=== PATIENT | male | born 1965 | race Caucasian/White ===

== ENCOUNTER 2017-11-09 08:08 | Outpatient (CLI) | payer OTHER | END 2017-11-09 08:09 | disposition critical access hospital (66) | LOC: EMS 08:08 | PROVIDERS: ATTEND Surgery | DX: M54.9 Dorsalgia, unspecified (principal); V09.20XA Pedestrian injured in traffic accident involving unspecified motor vehicles, initial encounter; Y93.01 Activity, walking, marching and hiking; Y92.414 Local residential or business street as the place of occurrence of the external cause | CPT/HCPCS: A0425; A0429 ==

== ENCOUNTER 2017-11-09 08:16 | Emergency (ER) | payer OTHER ==
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
[2017-11-09 10:20] VITALS: BP 143/82
== END 2017-11-09 10:19 | disposition home or self-care (01) ==
LOC: ED 08:16
DX: S20.212A Contusion of left front wall of thorax, initial encounter (principal); V03.10XA Pedestrian on foot injured in collision with car, pick-up truck or van in traffic accident, initial encounter; Y92.410 Unspecified street and highway as the place of occurrence of the external cause
CPT/HCPCS: 99283

== ENCOUNTER 2022-10-25 08:10 | Outpatient (CLI) | payer OTHER ==
--- NOTE | 2022-10-25 09:51 | XRAY Report ---
PROCEDURE: Chest 2 View X-Ray INDICATIONS: COUGH TECHNIQUE: 2 views of the chest were acquired. COMPARISON: None. FINDINGS: Surgical changes and devices: None. Lungs and pleura: Moderate right pleural effusion. Right basilar atelectasis versus consolidation. Mediastinum: Mediastinal contours are normal. Heart size is normal. Bones and chest wall: No suspicious bony abnormalities. Soft tissues appear unremarkable. IMPRESSION: Moderate right pleural effusion with right basilar atelectasis versus consolidation. If no fever or l eukocytosis, CT would be warranted. If fever and/or leukocytosis, consider repeat imaging 1 month fol lowing treatment. Reviewed by: Lupillo Franco on 10/25/2022 9:49 AM [facility] Approved by: Lupillo Franco on 10/25/2022 9:49 AM [facility] Station ID: [id number]
== END 2022-10-25 08:11 | disposition home or self-care (01) ==
LOC: DI 08:10
PROVIDERS: ATTEND Physician Assistant
DX: J90 Pleural effusion, not elsewhere classified (principal); R91.8 Other nonspecific abnormal finding of lung field

== ENCOUNTER 2022-10-25 12:15 | Emergency (ER) | payer OTHER ==
[2022-10-25 13:32] LABS: BASOPHILS # (AUTO) 0.1 10^3/uL (0.0-0.1); BASOPHILS % (AUTO) 0.3 %; EOSINOPHILS % (AUTO) 0.2 %; HCT - HEMATOCRIT 40.4 % (42.0-52.0); HGB - HEMOGLOBIN 13.4 g/dL (14.0-18.0); LYMPHOCYTES # (AUTO) 1.2 10^3/uL (1.5-3.5); LYMPHOCYTES % (AUTO) 6.3 %; MEAN CORPUSCULAR HEMOGLOBIN 27.7 pg (27.0-31.0); MEAN CORPUSCULAR HGB CONC 33.2 g/dL (32.0-36.0); MEAN CORPUSCULAR VOLUME 83.5 fL (80.0-94.0); MEAN PLATELET VOLUME 8.8 fL (7.4-11.4); MONOCYTES # (AUTO) 1.1 10^3/uL (0.0-1.0); MONOCYTES % (AUTO) 5.7 %; NEUTROPHILS # (AUTO) 16.3 10^3/uL (1.5-6.6); NEUTROPHILS % (AUTO) 87.1 %; PLT - PLATELET COUNT 630 10^3/uL (130-450); RED BLOOD COUNT 4.84 10^6/uL (4.70-6.10); RED CELL DISTRIBUTION WIDTH 12.6 % (12.0-15.0); WHITE BLOOD COUNT 18.7 x10^3/uL (4.8-10.8)
[2022-10-25] MEDS ORDERED: iohexoL-300 100 ML VIAL ONE (13:39)
[2022-10-25 13:45] LABS: ALBUMIN 2.2 g/dL (3.2-5.5); ALBUMIN/GLOBULIN RATIO 0.4 (1.0-2.2); BILIRUBIN,TOTAL 0.7 mg/dL (0.2-1.0); CALCIUM 8.3 mg/dL (8.5-10.3); CREATININE 0.6 mg/dL (0.6-1.2); POTASSIUM 4.2 mmol/L (3.5-5.0); TOTAL PROTEIN 7.6 g/dL (6.7-8.2)
[2022-10-25] MEDS ORDERED: metroNIDAZOLE 500 MG/100 ML 500 MG/100 ML BAG IV ONE (14:35)
[2022-10-25] MEDS ORDERED: cefTRIAXone 2 GM in SODIUM CHLORIDE 0.9% MINIBAG 100 ML IV STA (14:35)
--- NOTE | 2022-10-25 14:37 | ED Physician Documentation ---
History of Present Illness - Stated complaint Stated Complaint: SOA - Chief complaint Chief Complaint: Resp - History obtained from History obtained from: Patient - Additonal information Additional information: 57-year-old gentleman with history of diabetes, lost to follow-up without PCP. He started to get sick about a week and a half into August with productive cough. A couple of weeks later went to urgent care and got what sounds like steroids and felt much better. Then relapsed maybe 2 weeks ago with increased productive cough, shortness of breath and fatigue. Went back to urgent care to day and sent for an outpatient x-ray showing a large right pleural effusion and transferred to the ED was recommended. PD PAST MEDICAL HISTORY - Past Surgical History Past Surgical History: No - Present Medications Home Medications: Ambulatory Orders Medication Instructions Recorded Confirmed Brimonidine 0.2% Ophth Drops 1 drops OPTH BID 10/25/22 10/25/22 [Alphagan P 0.2% Ophth Drops] Latanoprost/Pf [Latanoprost 0.005% 1 drops OP HS 10/25/22 10/25/22 Eye Drop] Timolol 0.5% Ophth Drops [Timoptic 1 drops OPTH BID 10/25/22 10/25/22 0.5% Ophth Drops] - Allergies Allergies/Adverse Reactions: Allergies Allergy/AdvReac Type Severity Reaction Status Date / Time No Known Drug Allergies Allergy Verified 10/25/22 13:01 - Social History Does the pt smoke?: No Smoking Status: Never smoker PD ED PE NORMAL - Vitals Vital signs reviewed: Yes - General General: Alert and oriented X 3, Other (Mildly labored breathing with tachypnea but speaking in full sentences albeit barely. Appears pale.) - HEENT HEENT: PERRL, EOMI - Neck Neck: Supple, no meningeal sign, No bony TTP - Cardiac Cardiac: RRR, No murmur - Respiratory Respiratory: Other (Diminished to absent at the right base) - Abdomen Abdomen: Non tender - Back Back: No CVA TTP, No spinal TTP - Derm Derm: Normal color, Warm and dry, No rash - Extremities Extremities: No edema, No calf tenderness / cord - Neuro Neuro: Alert and oriented X 3, Normal speech Results - Vitals Vitals: Vital Signs - 24 hr 10/25/22 10/25/22 10/25/22 12:56 14:31 15:02 Temperature 37.1 C Heart Rate 99 112 H 107 H Respiratory 24 25 H 26 H Rate Blood Pressure 128/65 135/78 H 119/80 O2 Saturation 92 94 92 If not protocol : Oxygen Flow, liters/minute 10/25/22 10/25/22 10/25/22 16:03 17:36 17:53 Temperature Heart Rate 104 H 99 Respiratory 29 H 30 H Rate Blood Pressure 132/74 H 118/71 O2 Saturation 93 90 L 91 L If not protocol 1 : Oxygen Flow, liters/minute 10/25/22 10/25/22 10/25/22 18:30 20:00 20:30 Temperature Heart Rate 97 97 94 Respiratory 26 H 26 H 26 H Rate Blood Pressure 117/64 113/62 110/63 O2 Saturation 93 94 94 If not protocol 1 1 1 : Oxygen Flow, liters/minute 10/25/22 10/25/22 21:00 21:30 Temperature Heart Rate 98 96 Respiratory 26 H 25 H Rate Blood Pressure 126/79 126/72 O2 Saturation 94 95 If not protocol 1 1 : Oxygen Flow, liters/minute Oxygen O2 Source Nasal cannula Oxygen Flow Rate 1 - Labs Labs: Laboratory Tests 10/25/22 10/25/22 10/25/22 13:20 13:20 13:20 WBC 18.7 H RBC 4.84 Hgb 13.4 L Hct 40.4 L MCV 83.5 MCH 27.7 MCHC 33.2 RDW 12.6 Plt Count 630 H MPV 8.8 Neut # (Auto) 16.3 H Lymph # (Auto) 1.2 L [place] # (Auto) 1.1 H Eos # (Auto) 0.0 Baso # (Auto) 0.1 Absolute Nucleated RBC 0.00 Nucleated RBC % 0.0 Sodium 129 L Potassium 4.2 Chloride 93 L Carbon Dioxide 24 Anion Gap 12.0 BUN 14 Creatinine 0.6 Estimated GFR (MDRD) 139 Glucose 421 H POC Whole Bld Glucose Lactic Acid 1.7 Calcium 8.3 L Total Bilirubin 0.7 AST 16 ALT 13 Alkaline Phosphatase 98 Total Protein 7.6 Albumin 2.2 L Globulin 5.4 H Albumin/Globulin Ratio 0.4 L Nasal Adenovirus (PCR) Nasal B. parapertussis DNA (PCR) Nasal Coronavir 229E PCR Nasal Coronavir HKU1 PCR Nasal Coronavir NL63 PCR Nasal Coronavir OC43 PCR Nasal Enterovir/Rhinovir PCR Nasal Influenza B PCR Nasal Influenza A PCR Nasal Parainfluen 1 PCR Nasal Parainfluen 2 PCR Nasal Parainfluen 3 PCR Nasal Parainfluen 4 PCR Nasal RSV (PCR) Nasal B.pertussis DNA PCR Nasal C.pneumoniae (PCR) Ramiro Human Metapneumo PCR Nasal M.pneumoniae (PCR) Nasal SARS-CoV-2 (PCR) 10/25/22 10/25/22 15:45 21:26 WBC RBC Hgb Hct MCV MCH MCHC RDW Plt Count MPV Neut # (Auto) Lymph # (Auto) [place] # (Auto) Eos # (Auto) Baso # (Auto) Absolute Nucleated RBC Nucleated RBC % Sodium Potassium Chloride Carbon Dioxide Anion Gap BUN Creatinine Estimated GFR (MDRD) Glucose POC Whole Bld Glucose 297 H Lactic Acid Calcium Total Bilirubin AST ALT Alkaline Phosphatase Total Protein Albumin Globulin Albumin/Globulin Ratio Nasal Adenovirus (PCR) NOT DETECTED Nasal B. parapertussis DNA (PCR) NOT DETECTED Nasal Coronavir 229E PCR NOT DETECTED Nasal Coronavir HKU1 PCR NOT DETECTED Nasal Coronavir NL63 PCR NOT DETECTED Nasal Coronavir OC43 PCR NOT DETECTED Nasal Enterovir/Rhinovir PCR NOT DETECTED Nasal Influenza B PCR NOT DETECTED Nasal Influenza A PCR NOT DETECTED Nasal Parainfluen 1 PCR NOT DETECTED Nasal Parainfluen 2 PCR NOT DETECTED Nasal Parainfluen 3 PCR NOT DETECTED Nasal Parainfluen 4 PCR NOT DETECTED Nasal RSV (PCR) NOT DETECTED Nasal B.pertussis DNA PCR NOT DETECTED Nasal C.pneumoniae (PCR) NOT DETECTED Ramiro Human Metapneumo PCR NOT DETECTED Nasal M.pneumoniae (PCR) NOT DETECTED Nasal SARS-CoV-2 (PCR) DETECTED A - Rads (name of study) CT of the chest with IV contrast demonstrates a loculated pleural effusion on the right with patchy airspace opacities and mediastinal/hilar lymphade Radiology: Final report received, EMP read indepedently PD Medical Decision Making - ED course ED course: 57-year-old gentleman has been sick for the better part of a month with waxing and waning respiratory illness now here with tachypnea and tachycardia as well as borderline pulse oximetry and no breath sounds on the right. Work-up demonstrates likely multilobar pneumonia with a right-sided empyema. I did discuss with our surgeon here, Dr. Palacios who does not do chest cases and we will need to transfer him to a facility capable of cardiothoracic surgery consultation and this process is started at 3:22 PM. Multiple facilities with cardiothoracic surgery were called and he is boarding pending placement given that they are all currently full and wait listing him. Care to the overnight ED physician at shift change. In the interim I have written for scheduled Rocephin and Flagyl and repeat labs in the morning. CBC reviewed with significant leukocytosis at 18,000. CMP reviewed showing most notably elevated glucose of 421 for which he was administered some IV insulin and scheduled Lantus was started. Departure - Departure Disposition: 02 Transfer Acute Care Hosp Clinical Impression: Empyema Condition: Serious
[2022-10-25] MEDS ORDERED: INSULIN REGULAR HUMAN 100 UNIT/1 ML 10 ML MDV IVP STA (14:38)
[2022-10-25] MEDS ORDERED: SODIUM CHLORIDE 0.9% 1,000 ML IV STA (14:38)
--- NOTE | 2022-10-25 15:04 | CT Report ---
PROCEDURE: CHEST W INDICATIONS: dyspnea, abn xr CONTRAST:100ml Omnipaque 300 TECHNIQUE: After the administration of intravenous contrast, 1 mm axial images were acquired from the pulmonary apices through the posterior costophrenic angles. Axial 5 mm soft tissue kernel reconstructions were performed as well as 8 mm axial MIP and coronal and sagittal 5 mm reformations. For radiation dose reduction, the following was used: automated exposure control, adjustment of mA and/or kV according to patient size. COMPARISON: Chest radiograph dated 10/25/2022 and rib series dated 11/09/2017. FINDINGS: Image quality: Excellent. Lungs and pleura: Moderate to large sized partially loculated right pleural effusion is seen with flu id extending to major and minor fissure. There is near completely atelectasis of right middle and low er lobes and segmental atelectasis in posterior aspect of right upper lobe. Small left pleural effusi on is also noted with mild adjacent compressive atelectasis in posterior aspect of left lower lobe. I ll-defined subtle patchy airspace opacities are seen scattered in bilateral aerated lung arvizu cassidy rning for scattered small patchy infiltrates. No pneumothorax. Central and peripheral airways are pat ent and normal in caliber. Mediastinum: Heart size is mildly enlarged. No pericardial effusion. Moderate atherosclerotic calc ifications are seen in coronary vessels. Mildly enlarged mediastinal and hilar lymph nodes are seen m easures up to 1.1 cm in subcarinal space series 3 image 27. Thoracic aorta and central pulmonary regino mya are normal in size. Esophagus is normal in caliber. No hiatal hernia. Bones and chest wall: No suspicious bony lesions. No vertebral body compression fractures. No axil sherry or supraclavicular adenopathy by size criteria. The thyroid is normal in size and there are no incidental findings.. Abdomen: Visualized upper abdominal solid organs appear normal. Upper abdominal bowel loops are nor mal in caliber. IMPRESSION: 1. Moderate to large sized partially loculated right pleural effusion with near complete atelectasis of right middle and lower lobes and the segmental atelectasis in posterior aspect of right upper lobe . Small left pleural effusion with mild adjacent compressive atelectasis in posterior aspect of left lower lobe. No pneumothorax. 2. Ill-defined a subtle patchy airspace opacities scattered in bilateral aerated lung arvizu concerni ng for small bilateral scattered pulmonary infiltrates versus atelectasis. 3. Mildly enlarged mediastinal and right hilar lymph nodes suggestive of reactive inflammatory lymph nodes. 4. Mild cardiomegaly, no pericardial effusion. CLINICAL RECOMMENDATION STATEMENTS: In patients <35 years with an ITN detected on CT, MRI, or extrathyroidal ultrasound, the Committee re commends further evaluation with dedicated thyroid ultrasound if the nodule is "e1 cm and has no susp icious imaging features, and if the patient has normal life expectancy. In patients "e35 years with an ITN detected on CT, MRI, or extrathyroidal ultrasound, the Committee r ecommends further evaluation with dedicated thyroid ultrasound if the nodule is "e1.5 cm and has no s uspicious imaging features, and if the patient has normal life expectancy. (ACR, 2014) Reviewed by: Reggie Martines MD on 10/25/2022 3:03 PM PST Approved by: Reggie Martines MD on 10/25/2022 3:03 PM PST Station ID: [id number]
[2022-10-25] MEDS ORDERED: ONDANSETRON 4 MG/2 ML VIAL IVP PRN (15:32)
[2022-10-25] MEDS ORDERED: ACETAMINOPHEN 500 MG TABLET PO PRN (15:32)
[2022-10-25] MEDS ORDERED: iohexoL-300 100 ML VIAL IVP ONE (15:46)
[2022-10-25 16:58] LABS: B. PARAPERTUSSIS- RESP PCR PAN NOT DETECTED; B. PERTUSSIS- RESP PCR PANEL NOT DETECTED; C. PNEUMONIAE- RESP PCR PANEL NOT DETECTED; CORONAVIRUS 229E-RESP PCR NOT DETECTED; CORONAVIRUS HKU1-RESP PCR NOT DETECTED; CORONAVIRUS NL63-RESP PCR NOT DETECTED; CORONAVIRUS OC43-RESP PCR NOT DETECTED; HUMAN METAPNEUMOVIRUS NOT DETECTED; INFLUENZA A- RESP PCR PANEL NOT DETECTED; INFLUENZA B - RESP PCR PANEL NOT DETECTED; M. PNEUMONIAE- RESP PCR PANEL NOT DETECTED; PARAINFLUENZA VIRUS 1 NOT DETECTED; PARAINFLUENZA VIRUS 2 NOT DETECTED; PARAINFLUENZA VIRUS 3 NOT DETECTED; PARAINFLUENZA VIRUS 4 NOT DETECTED; RHINOVIRUS/ENTEROVIRUS NOT DETECTED; RSV- RESP PCR PANEL NOT DETECTED; SARS-CoV-2 -RESP PCR PANEL DETECTED
[2022-10-25] MEDS ORDERED: INSULIN GLARGINE-YFGN 300 UNIT/3 ML PEN SUBQ SCH (21:00)
[2022-10-25] MEDS: metroNIDAZOLE 500 MG/100 ML 500 MG/100 ML BAG IV SCH (21:24)
--- NOTE | 2022-10-26 00:02 | ED Physician Documentation ---
ED Addendum - Addendum Addendum: 10/26/22 00:00 d/w Sanjay at transfer center - patient currently 95% on 1L o2, tachypneic 25, HR 96. is declining transfer for now, stating patient is stable and they do not have bed capacity. They request re-consulting in morning if we are unable to place the patient. Our [facility] tonya has placed the patient on 5 waitlists and [facility] has been notified. Plan to endorse to daytime ED MD at 7am shift change. 10/26/22 00:02
[2022-10-26 00:05] LABS: BILIRUBIN,URINE NEGATIVE (NEGATIVE); CLARITY,URINE CLEAR (CLEAR); GLUCOSE, URINE (UA) 500 mg/dL (NEGATIVE); KETONES,URINE (UA) 40 mg/dL (NEGATIVE); LEUKOCYTE ESTERASE, URINE NEGATIVE (NEGATIVE); NITRITE,URINE NEGATIVE (NEGATIVE); OCCULT BLOOD,URINE TRACE-INTA (NEGATIVE); PROTEIN,URINE TRACE mg/dL (NEGATIVE); UROBILINOGEN,URINE 1 (NORMAL) E.U./dL (NORMAL)
[2022-10-26 00:13] LABS: BACTERIA,URINE Rare /HPF (None Seen); RBC,URINE 0-5 /HPF (0-5); SQUAMOUS EPITHELIAL CELL,UR RARE Squamous (<= Few); WBC,URINE 0-3 /HPF (0-3)
[2022-10-26] MEDS: metroNIDAZOLE 500 MG/100 ML 500 MG/100 ML BAG IV SCH (05:40)
[2022-10-26 06:00] LABS: BASOPHILS # (AUTO) 0.1 10^3/uL (0.0-0.1); BASOPHILS % (AUTO) 0.3 %; EOSINOPHILS % (AUTO) 0.2 %; HCT - HEMATOCRIT 36.7 % (42.0-52.0); HGB - HEMOGLOBIN 12.2 g/dL (14.0-18.0); LYMPHOCYTES # (AUTO) 1.3 10^3/uL (1.5-3.5); LYMPHOCYTES % (AUTO) 8.3 %; MEAN CORPUSCULAR HEMOGLOBIN 27.7 pg (27.0-31.0); MEAN CORPUSCULAR HGB CONC 33.2 g/dL (32.0-36.0); MEAN CORPUSCULAR VOLUME 83.4 fL (80.0-94.0); MEAN PLATELET VOLUME 8.6 fL (7.4-11.4); MONOCYTES # (AUTO) 1.2 10^3/uL (0.0-1.0); MONOCYTES % (AUTO) 7.9 %; NEUTROPHILS % (AUTO) 82.8 %; PLT - PLATELET COUNT 531 10^3/uL (130-450); RED CELL DISTRIBUTION WIDTH 12.5 % (12.0-15.0); WHITE BLOOD COUNT 15.7 x10^3/uL (4.8-10.8)
[2022-10-26 06:16] LABS: CREATININE 0.5 mg/dL (0.6-1.2); POTASSIUM 3.7 mmol/L (3.5-5.0)
[2022-10-26] MEDS ORDERED: PANTOPRAZOLE 40 MG TABLET PO SCH (07:00)
[2022-10-26] MEDS ORDERED: FAMOTIDINE 20 MG TABLET PO STA (08:31)
[2022-10-26] MEDS ORDERED: MAG HYDROX/AL HYDROX/SIMETH 30 ML UDC PO STA (08:31)
[2022-10-26] MEDS ORDERED: cefTRIAXone 1 GM in SODIUM CHLORIDE 0.9% MINIBAG 100 ML IV SCH (09:00)
[2022-10-26] MEDS ORDERED: ELECTROLYTE-A SOLUTION 1,000 ML IV SCH (09:00)
[2022-10-26] MEDS ORDERED: SUCRALFATE 1 GM/10 ML UDC PO STA (11:59)
--- NOTE | 2022-10-26 12:54 | ED Physician Documentation ---
ED Addendum - Addendum Addendum: 10/26/22 12:51 The patient has been doing well this morning with oxygenation at 94% on 2 L nasal cannula. He has unlabored breathing. He does have a history of some mild reactive airways and uses albuterol inhaler as needed. We can give an albuterol nebulizer here to help with aeration. He did complain of some heartburn type symptoms and he has had a history of reflux in the past. He uses Tums a lot. We can give some H2 iam and antacid. We did get a call from [facility] and I talked online on the phone with both the hospitalist and pulmonary medicine physician. They agree the patient should be transferred for more interventional treatment including drainage of the empyema and further medication. They were excepting the patient in transfer and would notify us when a bed is available. They asked if there had been any diagnostic drainage of the empyema at as yet and I said we had not. I reviewed the vital signs and patient condition as well as the labs and imaging finding with both specialists. No further treatment was suggested at this point. [facility] did subsequently call back and have beds of now available and the patient will be transferred via ground EMS for further care. Disposition: The patient is transferred to acute care facility in stable condition. Diagnoses: 1. Dyspnea 2. Acute pneumonia 3. Empyema
[2022-10-26 13:23] VITALS: BP 130/82
== END 2022-10-26 14:50 | disposition short-term general hospital (02) ==
LOC: ED 12:15
DX: J90 Pleural effusion, not elsewhere classified (principal); U07.1 COVID-19; Z75.1 Person awaiting admission to adequate facility elsewhere; J86.9 Pyothorax without fistula; J18.9 Pneumonia, unspecified organism; E11.65 Type 2 diabetes mellitus with hyperglycemia; R91.8 Other nonspecific abnormal finding of lung field
CPT/HCPCS: 36415; 71046; 71260; 80048; 80053; 81001; 83605; 85025; 87040; 87633; 96365; 96366; 96367; 96368; 99285; A9270; J1815; Q9967; 87086

== ENCOUNTER 2022-10-26 14:05 | Outpatient (CLI) | payer OTHER | END 2022-10-26 14:06 | disposition short-term general hospital (02) | LOC: EMS 14:05 | PROVIDERS: ATTEND Emergency Medicine | DX: J18.9 Pneumonia, unspecified organism (principal); J86.9 Pyothorax without fistula; Z99.81 Dependence on supplemental oxygen | CPT/HCPCS: A0425; A0426 ==

== ENCOUNTER 2023-01-10 14:28 | Outpatient (CLI) | payer OTHER ==
[2023-01-10 17:39] LABS: BASOPHILS # (AUTO) 0.1 10^3/uL (0.0-0.1); BASOPHILS % (AUTO) 0.7 %; EOSINOPHILS # (AUTO) 0.3 10^3/uL (0.0-0.7); EOSINOPHILS % (AUTO) 2.6 %; HCT - HEMATOCRIT 48.5 % (42.0-52.0); HGB - HEMOGLOBIN 15.7 g/dL (14.0-18.0); LYMPHOCYTES # (AUTO) 2.1 10^3/uL (1.5-3.5); LYMPHOCYTES % (AUTO) 18.9 %; MEAN CORPUSCULAR HEMOGLOBIN 27.7 pg (27.0-31.0); MEAN CORPUSCULAR HGB CONC 32.4 g/dL (32.0-36.0); MEAN CORPUSCULAR VOLUME 85.7 fL (80.0-94.0); MEAN PLATELET VOLUME 9.1 fL (7.4-11.4); MONOCYTES # (AUTO) 0.6 10^3/uL (0.0-1.0); MONOCYTES % (AUTO) 5.1 %; NEUTROPHILS # (AUTO) 8.2 10^3/uL (1.5-6.6); NEUTROPHILS % (AUTO) 72.2 %; PLT - PLATELET COUNT 416 10^3/uL (130-450); RED BLOOD COUNT 5.66 10^6/uL (4.70-6.10); RED CELL DISTRIBUTION WIDTH 13.7 % (12.0-15.0); WHITE BLOOD COUNT 11.3 x10^3/uL (4.8-10.8)
[2023-01-10 18:03] LABS: ALBUMIN 3.9 g/dL (3.2-5.5); ALBUMIN/GLOBULIN RATIO 0.9 (1.0-2.2); ALKALINE PHOSPHATASE 64 IU/L (42-121); ALT ALANINE AMINOTRANSFERASE 14 IU/L (10-60); AST ASPARTATE AMINOTRANSFERASE 11 IU/L (10-42); BILIRUBIN,TOTAL 0.3 mg/dL (0.2-1.0); BUN - BLOOD UREA NITROGEN 17 mg/dL (6-20); CALCIUM 9.3 mg/dL (8.5-10.3); CARBON DIOXIDE - CO2 25 mmol/L (21-32); CHLORIDE 104 mmol/L (101-111); CHOL/HDL RATIO 3.8 (<5.0); CHOLESTEROL 122 mg/dL; CREATININE 0.5 mg/dL (0.6-1.2); GFR - MDRD 172 (>89); GLUCOSE 146 mg/dL (70-100); HDL CHOLESTEROL 32 mg/dL; LDL CHOLESTEROL,CALCULATED 36 mg/dL; LDL/HDL RATIO 1.1 (<3.6); POTASSIUM 4.6 mmol/L (3.5-5.0); SODIUM 136 mmol/L (135-145); TOTAL PROTEIN 8.1 g/dL (6.7-8.2); TRIGLYCERIDES 272 mg/dL; VLDL CHOLESTEROL 54 mg/dL
[2023-01-10 18:08] LABS: THYROID STIMULATING HORMONE 3.16 uIU/mL (0.34-5.60)
[2023-01-11 16:45] LABS: ESTIMATED AVERAGE GLUCOSE 160 mg/dL (70-100); HEMOGLOBIN A1c% 7.2 % (4.27-6.07)
== END 2023-01-10 14:29 | disposition home or self-care (01) ==
LOC: LAB.N 14:28
PROVIDERS: ATTEND Nurse Practitioner Family
DX: I25.10 Atherosclerotic heart disease of native coronary artery without angina pectoris (principal); M62.81 Muscle weakness (generalized); E11.69 Type 2 diabetes mellitus with other specified complication; I21.21 ST elevation (STEMI) myocardial infarction involving left circumflex coronary artery; J96.00 Acute respiratory failure, unspecified whether with hypoxia or hypercapnia; R33.9 Retention of urine, unspecified; Z12.5 Encounter for screening for malignant neoplasm of prostate
CPT/HCPCS: 36415; 80053; 80061; 83036; 83721; 84153; 84443; 85025